=== PATIENT | female | born 1990 | race Caucasian/White ===

== ENCOUNTER 2020-09-17 07:30 | Emergency (ER) | payer MEDICAID, OTHER ==
[~2020-09-17] VITALS: Ht 154.9 cm; Wt 90.7 kg
[2020-09-17 07:32] VITALS: BP 104/59
[2020-09-17] MEDS ORDERED: KETOROLAC TROMETH 60MG/2ML VIAL IM ONE (08:00)
[2020-09-17] MEDS ORDERED: IBUPROFEN 800 MG TAB PO ONE (08:00)
== END 2020-09-17 09:19 | disposition home or self-care (01) ==
LOC: EDBD 07:30 → ER 07:30
DX: S16.1XXA Strain of muscle, fascia and tendon at neck level, initial encounter (principal); S29.012A Strain of muscle and tendon of back wall of thorax, initial encounter; V43.52XA Car driver injured in collision with other type car in traffic accident, initial encounter; Y93.89 Activity, other specified; Y92.488 Other paved roadways as the place of occurrence of the external cause; Y99.8 Other external cause status
CPT/HCPCS: 72040; 72070; 96372; 99284; J1885